=== PATIENT | female | born 1935 | race Caucasian/White ===

== ENCOUNTER → 2017-05-23 | Outpatient (CLI) | payer MEDICARE, BC ==
[~2017-05-23] MED LIST: ASPIR 8181 MG PO; COZAAR50 MG PO; FISH OIL 1,2001 EACH PO; FLONASE 50 MCG/16 GM NOSE; HYDRODIURIL25 MG PO; LEVAQUIN500 MG PO; LIPITOR10 M1 PO; LOPRESSOR12.5 MG/0. PO; LYRICA75 MG PO; NORVASC5 MG PO; OSCAL500 MG PO; SYNTHROID88 MCG PO; TYLENOL325 MG PO; VITAMIN D1000 UNIT PO
== END ==
LOC: GBCOE 10:38
DX: Z12.31 Encounter for screening mammogram for malignant neoplasm of breast (principal); Z85.3 Personal history of malignant neoplasm of breast
CPT/HCPCS: G0202